=== PATIENT | male | born 1990 | race Caucasian/White ===

== ENCOUNTER 2025-02-27 07:34 | Emergency (ER) | payer OTHER ==
[~2025-02-27] VITALS: Ht 157.5 cm; Wt 59.0 kg
[2025-02-27] MEDS ORDERED: LIDO30AD10 TP (07:58)
[2025-02-27] MEDS ORDERED: CYCL5TAB PO (07:58)
[2025-02-27] MEDS ORDERED: IBUP-1955 PO (07:58)
[2025-02-27] MEDS ORDERED: LIDOCAINE 5% (PATCH) 1 EA PATCH TP ONE (09:04)
[2025-02-27] MEDS ORDERED: ACETAMINOPHEN 325 MG TABLET ONE (09:04)
[2025-02-27] MEDS: LIDOCAINE 5% (PATCH) 1 EA PATCH TP STA (09:05)
[2025-02-27] MEDS: ACETAMINOPHEN 325 MG TABLET PO ONE (09:09)
[2025-02-27 10:22] VITALS: BP 128/77; TEMP 98.1; O2SAT 99
== END 2025-02-27 10:22 | disposition home or self-care (01) ==
LOC: ER 07:38
DX: S16.1XXA Strain of muscle, fascia and tendon at neck level, initial encounter (principal); S29.012A Strain of muscle and tendon of back wall of thorax, initial encounter; S43.402A Unspecified sprain of left shoulder joint, initial encounter; S80.811A Abrasion, right lower leg, initial encounter; Z60.2 Problems related to living alone; V23.49XA Other motorcycle driver injured in collision with car, pick-up truck or van in traffic accident, initial encounter; Y93.55 Activity, bike riding; Y92.488 Other paved roadways as the place of occurrence of the external cause; Y99.8 Other external cause status
CPT/HCPCS: 71045-TC; 72125-TC; 73030-TC; 73590-TC